=== PATIENT | female | born 1950 | race Caucasian/White ===

== ENCOUNTER 2017-05-12 18:13 | Emergency (ER) | END 2017-05-12 21:28 | disposition home or self-care (01) ==

== ENCOUNTER 2017-05-24 16:32 | Emergency (ER) | END 2017-05-24 22:00 | disposition home or self-care (01) ==

== ENCOUNTER 2017-06-09 10:18 | Emergency (ER) | END 2017-06-09 11:57 | disposition home or self-care (01) ==

== ENCOUNTER 2017-09-28 08:49 | Day surgery (SDC) | END 2017-09-28 17:18 | disposition home or self-care (01) ==